=== PATIENT | female | born 1970 | race Caucasian/White ===

== ENCOUNTER 2016-09-23 22:30 | Emergency (ER) | payer OTHER ==
[2016-09-23] MEDS ORDERED: MAALOX/LIDO2%VISC/SIMETHICONE 40 ML BOT ONE (23:34)
[2016-09-24] MEDS ORDERED: PROCHLORPERAZINE 5 MG/ML 2 ML VIAL ONE (02:16)
[2016-09-24] MEDS ORDERED: MORPHINE SULFATE 4 MG/ML SYRINGE ONE (02:16)
[2016-09-24] MEDS ORDERED: LACTATED RINGERS 1,000 ML ONE (02:16)
[2016-09-24 02:47] LABS: PH,URINE 6.5 (5.0-8.0); URINE BILIRUBIN NEGATIVE (NEGATIVE); URINE BLOOD 3+ (NEGATIVE); URINE GLUCOSE (UA) NEGATIVE (NEGATIVE); URINE LEUKOCYTE ESTERASE NEGATIVE (NEGATIVE); URINE NITRITE NEGATIVE (NEGATIVE); URINE PROTEIN TRACE (NEGATIVE); URINE UROBILINOGEN NORMAL (0-1 mg/dl)
[2016-09-24 02:48] LABS: URINE APPEARANCE HAZY; URINE COLOR AMBER
[2016-09-24 02:49] LABS: ABSOLUTE NEUTROPHIL COUNT 9.6 K/mm3 (1.8-7.7); BASO # 0.1 K/mm3 (0.0-0.2); BASO % 0.8 % (0.2-1.0); EOS # 0.2 (0.0-0.5); EOS % 1.3 % (0.9-2.9); HEMATOCRIT 46.9 % (37.0-47.0); HEMOGLOBIN 15.6 gm/l (12.0-16.0); IMM NEUT # 0.2 K/mm3 (0-0.2); IMM NEUT% 1.1 % (0-1); LYMPH # 4.1 (1.0-4.8); LYMPH % 27.4 % (15-45); MEAN CELL VOLUME 93.6 fl (81.0-99.0); MEAN CORPUSCULAR HEMOGLOBIN 31.1 pg (27.0-31.0); MEAN CORPUSCULAR HGB CONC 33.3 g/dl (33.0-37.0); MEAN PLATELET VOLUME 9.3 fl (7.4-10.4); MONO # 0.8 (0.0-0.8); MONO % 5.5 % (4-12); NEUT % 63.9 % (43-75); PLATELET COUNT 411 K/mm3 (130-400)
[2016-09-24 02:59] LABS: URINE BACTERIA 2+
[2016-09-24 03:06] LABS: ALB/GLOB RATIO 1.2 (>1.0); ALBUMIN 4.2 gm/dL (3.5-5.7); CALCIUM 10.2 mg/dL (8.6-10.3)
--- NOTE | 2016-09-24 08:09 | US ---
Name: CHRIS SMALL Exam: Gallbladder Ultrasound Comparison: None Clinical History: Epigastric pain and nausea Findings: Ultrasound of the gallbladder was performed. Gallbladder 7 cm in greatest dimension. Wall thickness is 2.7 mm. There is no sludge or stones and no pericholecystic fluid. Ultrasound Skinner sign is negative. Common bile duct is normal at 3.3 mm. Impression: Normal Gallbladder Ultrasound Note: Findings were transmitted to the emergency department from [place] [id number] hours
== END 2016-09-24 04:23 | disposition home or self-care (01) ==
LOC: ED 22:30
DX: R10.13 Epigastric pain (principal); M79.7 Fibromyalgia; J44.9 Chronic obstructive pulmonary disease, unspecified; Z86.711 Personal history of pulmonary embolism; F32.9 Major depressive disorder, single episode, unspecified; F41.9 Anxiety disorder, unspecified; F17.210 Nicotine dependence, cigarettes, uncomplicated; Z79.899 Other long term (current) drug therapy; Z88.0 Allergy status to penicillin; Z91.048 Other nonmedicinal substance allergy status
CPT/HCPCS: 83690; 84703; 85025; 87086; 80053; 87186; 84484; 81001; 87077; 76705; 96375; 99284 ×2; 96374; 96361 ×2; J0780; A9270; J2270; J7120